=== PATIENT | male | born 1980 | race Caucasian/White ===

== ENCOUNTER 2025-02-01 15:36 | Emergency (ER) | payer OTHER, SELFPAY ==
[2025-02-01 15:38] VITALS: BP 135/92; PULSE 76; RESP 16; TEMP 36.4; O2SAT 99
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
[2025-02-01] MEDS: Acetaminophen 500 MG TAB 1000 MG PO (16:03)
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
[2025-02-01] MEDS: Ibuprofen 600 MG TAB PO (17:03)
[2025-02-01 17:07] VITALS: BP 131/90; PULSE 69; RESP 18; O2SAT 99
== END 2025-02-01 17:08 | disposition home or self-care (01) ==
LOC: ER 16:43
PROVIDERS: Emergency Provider Emergency Medicine
DX: S00.81XA Abrasion of other part of head, initial encounter (principal); V18.0XXA Pedal cycle driver injured in noncollision transport accident in nontraffic accident, initial encounter; S06.9XAA Unspecified intracranial injury with loss of consciousness status unknown, initial encounter
CPT/HCPCS: 99284; 99283; 70450